=== PATIENT | female | born 1950 | race Caucasian/White ===

== ENCOUNTER 2020-04-20 12:50 | Inpatient (IN) | payer MEDICARE ==
[~2020-04-20] VITALS: Ht 157.5 cm; Wt 104.5 kg
[2020-04-20] MEDS ORDERED: CHOLECALCIFEROL (VITD3) 2,000 UNIT CAP/TAB PO ONE (13:15)
[2020-04-20] MEDS ORDERED: ZINC SULFATE 220mg CAP or TAB PO ONE (13:15)
[2020-04-20] MEDS ORDERED: ASCORBIC ACID 500 MG TAB PO ONE (13:15)
[2020-04-20] MEDS ORDERED: methylPREDNISolone SOD SUCC 125 MG/2 ML VL IV ONE (13:15)
[2020-04-20] MEDS ORDERED: ACETAMINOPHEN 325 MG TAB PO ONE (13:30)
[2020-04-20 13:58] LABS: Basophils # (auto) 0 10 ^3/uL (0-0.2); Basophils % (auto) 0.4 % (0.0-2.0); Eosinophils # (auto) 0 10 ^3/uL (0-0.8); Eosinophils % (auto) 0.2 % (0.0-7.0); Hemoglobin 13.9 g/dL (12.2-16.2); Lymphocytes # (auto) 0.7 10 ^3/uL (0.4-5.4); Lymphocytes % (auto) 12.5 % (10.0-50.0); Mean Corpuscular Hemoglobin 32.9 pg (28.0-32.0); Mean Corpuscular Hgb Conc. 33.9 g/dL (32.0-36.0); Monocytes # (auto) 0.3 10 ^3/uL (0-1.3); Monocytes % (auto) 4.7 % (0.0-12.0); Neutrophils # (auto) 4.7 10 ^3/uL (1.6-8.6); Neutrophils % (auto) 82.2 % (37.0-80.0); Nucleated Red Blood Cells % 0.1 %; Platelet Count (auto) 96 10^3/uL (140-450); Red Blood Cells 4.23 10^6/uL (4.0-5.20); Red Cell Distribution Width 12.7 % (11.8-14.3); White Blood Cell 5.7 10^3/uL (4.4-10.8)
[2020-04-20 14:22] LABS: Albumin 3.3 g/dL (3.4-5.0); Anion Gap 7 (5-15); Blood Urea Nitrogen 13 mg/dL (7-18); Calcium 8.1 mg/dL (8.5-10.1); Carbon Dioxide 25 mmol/L (21-32); Chloride 104 mmol/L (98-107); Glucose 106 mg/dL (74-106); Sodium 136 mmol/L (136-145)
[2020-04-20 14:30] LABS: Alanine Aminotransferase 128 U/L (13-56); Alkaline Phosphatase 92 U/L (45-117); Aspartate Aminotransferase 167 U/L (15-37); BUN/Creatinine Ratio 14.4; Bilirubin, Total 0.6 mg/dL (0.2-1.0); CRP High Sensitivity 4.44 mg/dL (< 0.3); GFR African American 80 mL/min; GFR Non-African American 66 mL/min; Total Protein 7.9 g/dL (6.4-8.2)
[2020-04-20] MEDS ORDERED: DOCUSATE SOD 100 MG CAP PO PRN (14:30)
[2020-04-20] MEDS ORDERED: levoFLOXacin 750MG 150 ML IV ONE (14:30)
[2020-04-20] MEDS ORDERED: ONDANSETRON HCL 4 MG/2 ML VIAL IV PRN (14:30)
[2020-04-20] MEDS ORDERED: HYDROcodone-ACET 5/325MG TAB PO PRN (14:30)
[2020-04-20] MEDS ORDERED: LORazepam 0.5 MG TAB PO PRN (14:30)
[2020-04-20] MEDS ORDERED: ALUM & MAG HYDROX-SIMETH LIQ(MAALOX) 30 ML PO PRN (14:30)
[2020-04-20] MEDS ORDERED: ACETAMINOPHEN 500 MG TAB PO PRN (14:30)
[2020-04-20] MEDS ORDERED: REMDESIVIR PER PHARMACY 0 ML IV SCH (14:30)
[2020-04-20] MEDS ORDERED: NITROGLYCERIN 0.4 MG SL TAB SL PRN (14:30)
[2020-04-20] MEDS ORDERED: MORPHINE SULF INJ 2 MG/ML SYRINGE 1ML IV PRN ×2 (14:30)
[2020-04-20 15:28] LABS: Magnesium 2.2 mg/dL (1.6-2.6)
[2020-04-20 15:33] LABS: Cholesterol 115 mg/dL (< 200); Triglycerides 136 mg/dL (< 150)
[2020-04-20 15:36] LABS: HDL Cholesterol 25 mg/dL (40-59); LDL Cholesterol 74 mg/dL (< 100)
[2020-04-20 16:00] VITALS: BP 122/68
[2020-04-20] MEDS ORDERED: CLINDAMYCIN 600MG IV 50 ML IV ONE (16:00)
[2020-04-20] MEDS ORDERED: REMDESIVIR 200 MG in NS 210ml LOADING DOSE ADULT IV ONE (20:00)
[2020-04-20] MEDS: BUDESONIDE (INHALATION) 180 MCG IH IN SCH (21:55)
[2020-04-20] MEDS: ALBUTEROL SULF HFA 90MCG INH 200DOSE IN PRN (21:55)
[2020-04-20] MEDS: CLINDAMYCIN 600MG IV 50 ML IV SCH (22:00)
[2020-04-20] MEDS: ENOXAPARIN SOD 40 MG/0.4 ML SYRINGE SC SCH (22:36)
[2020-04-21] VITALS: BP 97/66
[2020-04-21] MEDS: ALBUTEROL SULF HFA 90MCG INH 200DOSE IN PRN ×2 (06:30→21:08)
[2020-04-21] MEDS: BUDESONIDE (INHALATION) 180 MCG IH IN SCH ×2 (06:31→18:48)
[2020-04-21 06:35] LABS: Basophils # (auto) 0 10 ^3/uL (0-0.2); Basophils % (auto) 0.3 % (0.0-2.0); Eosinophils # (auto) 0 10 ^3/uL (0-0.8); Hematocrit 39.4 % (36.0-46.0); Hemoglobin 13.7 g/dL (12.2-16.2); Lymphocytes # (auto) 0.7 10 ^3/uL (0.4-5.4); Lymphocytes % (auto) 13.6 % (10.0-50.0); Mean Corpuscular Hemoglobin 33.4 pg (28.0-32.0); Mean Corpuscular Hgb Conc. 34.7 g/dL (32.0-36.0); Mean Corpuscular Volume 96.2 fL (80.0-100.0); Monocytes # (auto) 0.2 10 ^3/uL (0-1.3); Monocytes % (auto) 3.8 % (0.0-12.0); Neutrophils # (auto) 4.2 10 ^3/uL (1.6-8.6); Neutrophils % (auto) 82.3 % (37.0-80.0); Nucleated Red Blood Cells % 0.2 %; Platelet Count (auto) 111 10^3/uL (140-450); Red Cell Distribution Width 12.7 % (11.8-14.3); White Blood Cell 5.1 10^3/uL (4.4-10.8)
[2020-04-21] MEDS: CLINDAMYCIN 600MG IV 50 ML IV SCH ×3 (06:44→21:40)
[2020-04-21 06:50] LABS: Potassium 4.1 mmol/L (3.5-5.1)
[2020-04-21 06:56] LABS: INR 1.03 (0.9-1.15); Partial Thromboplastin Time 36.4 sec (23.0-31.2)
[2020-04-21 06:58] LABS: Albumin 2.9 g/dL (3.4-5.0); BUN/Creatinine Ratio 15.6; Bilirubin, Total 0.5 mg/dL (0.2-1.0); Calcium 7.9 mg/dL (8.5-10.1); Magnesium 2.5 mg/dL (1.6-2.6); Phosphorus 3.2 mg/dL (2.5-4.90); Total Protein 7.2 g/dL (6.4-8.2)
[2020-04-21 07:56] VITALS: BP 115/45
[2020-04-21] MEDS: DexAMETHasone SOD PHOS 10MG/1ML VIAL INJ IV SCH (10:26)
[2020-04-21] MEDS: levoFLOXacin 750MG 150 ML IV SCH (10:26)
[2020-04-21] MEDS: ZINC SULFATE 220mg CAP or TAB PO SCH (10:27)
[2020-04-21] MEDS: ASPirin 81 mg TAB PO SCH (10:27)
[2020-04-21] MEDS: CITALOPRAM HYDROBR 20 MG TAB PO SCH (10:28)
[2020-04-21] MEDS: LOSARTAN POTASSIUM 50 MG TAB PO SCH (10:29)
[2020-04-21] MEDS: ASCORBIC ACID 1,000 MG TAB PO SCH (10:29)
[2020-04-21] MEDS: CHOLECALCIFEROL (VITD3) 2,000 UNIT CAP/TAB PO SCH (10:30)
[2020-04-21] MEDS: REMDESIVIR 100mg 100 MG in SODIUM CHL 0.9% 230 ML IV SCH (14:47)
[2020-04-21 15:42] VITALS: BP 113/75
[2020-04-21] MEDS: ATORVASTATIN 20 MG TAB PO SCH (21:40)
[2020-04-21] MEDS: ENOXAPARIN SOD 40 MG/0.4 ML SYRINGE SC SCH (21:41)
[2020-04-22] VITALS: BP 104/56
[2020-04-22] MEDS: CLINDAMYCIN 600MG IV 50 ML IV SCH ×3 (06:53→21:58)
[2020-04-22 07:40] LABS: Calcium 8.5 mg/dL (8.5-10.1); Potassium 4.1 mmol/L (3.5-5.1)
[2020-04-22 07:42] LABS: BUN/Creatinine Ratio 21.1
[2020-04-22 07:45] LABS: Bilirubin, Total 0.5 mg/dL (0.2-1.0); Total Protein 7.2 g/dL (6.4-8.2)
[2020-04-22 08:00] VITALS: BP 112/43
[2020-04-22] MEDS: DexAMETHasone SOD PHOS 10MG/1ML VIAL INJ IV SCH (09:14)
[2020-04-22] MEDS: ZINC SULFATE 220mg CAP or TAB PO SCH (09:14)
[2020-04-22] MEDS: CITALOPRAM HYDROBR 20 MG TAB PO SCH (09:14)
[2020-04-22] MEDS: ASPirin 81 mg TAB PO SCH (09:14)
[2020-04-22] MEDS: levoFLOXacin 750MG 150 ML IV SCH (09:14)
[2020-04-22] MEDS: CHOLECALCIFEROL (VITD3) 2,000 UNIT CAP/TAB PO SCH (09:15)
[2020-04-22] MEDS: LOSARTAN POTASSIUM 50 MG TAB PO SCH (09:15)
[2020-04-22] MEDS: ASCORBIC ACID 1,000 MG TAB PO SCH (09:15)
[2020-04-22] MEDS: REMDESIVIR 100mg 100 MG in SODIUM CHL 0.9% 230 ML IV SCH (14:46)
[2020-04-22 15:55] VITALS: BP 109/51
[2020-04-22] MEDS: BUDESONIDE (INHALATION) 180 MCG IH IN SCH ×2 (20:50→21:59)
[2020-04-22] MEDS: ENOXAPARIN SOD 40 MG/0.4 ML SYRINGE SC SCH (21:58)
[2020-04-22] MEDS: ATORVASTATIN 20 MG TAB PO SCH (21:58)
[2020-04-23] VITALS: BP 119/49
[2020-04-23 06:02] LABS: Albumin 2.8 g/dL (3.4-5.0); Calcium 8.1 mg/dL (8.5-10.1); Potassium 4.5 mmol/L (3.5-5.1)
[2020-04-23 06:07] LABS: BUN/Creatinine Ratio 27.5; Bilirubin, Total 0.6 mg/dL (0.2-1.0)
[2020-04-23] MEDS: BUDESONIDE (INHALATION) 180 MCG IH IN SCH ×2 (06:15→19:36)
[2020-04-23] MEDS: ALBUTEROL SULF HFA 90MCG INH 200DOSE IN PRN ×3 (06:15→19:36)
[2020-04-23] MEDS: CLINDAMYCIN 600MG IV 50 ML IV SCH ×3 (06:23→22:18)
[2020-04-23 08:00] VITALS: BP 120/46
[2020-04-23] MEDS: DexAMETHasone SOD PHOS 10MG/1ML VIAL INJ IV SCH (09:35)
[2020-04-23] MEDS: CITALOPRAM HYDROBR 20 MG TAB PO SCH (09:36)
[2020-04-23] MEDS: ASPirin 81 mg TAB PO SCH (09:36)
[2020-04-23] MEDS: ZINC SULFATE 220mg CAP or TAB PO SCH (09:36)
[2020-04-23] MEDS: levoFLOXacin 750MG 150 ML IV SCH (09:36)
[2020-04-23] MEDS: ASCORBIC ACID 1,000 MG TAB PO SCH (09:37)
[2020-04-23] MEDS: CHOLECALCIFEROL (VITD3) 2,000 UNIT CAP/TAB PO SCH (09:37)
[2020-04-23] MEDS: LOSARTAN POTASSIUM 50 MG TAB PO SCH (09:37)
[2020-04-23] MEDS: REMDESIVIR 100mg 100 MG in SODIUM CHL 0.9% 230 ML IV SCH (16:00)
[2020-04-23 16:03] VITALS: BP 135/74
[2020-04-23] MEDS: ATORVASTATIN 20 MG TAB PO SCH (22:18)
[2020-04-23] MEDS: ENOXAPARIN SOD 40 MG/0.4 ML SYRINGE SC SCH (22:18)
[2020-04-24] VITALS: BP 143/86
[2020-04-24] MEDS: CLINDAMYCIN 600MG IV 50 ML IV SCH (05:47)
[2020-04-24 06:12] LABS: Basophils # (auto) 0 10 ^3/uL (0-0.2); Eosinophils # (auto) 0 10 ^3/uL (0-0.8); Hematocrit 40.4 % (36.0-46.0); Hemoglobin 13.9 g/dL (12.2-16.2); Lymphocytes % (auto) 13.9 % (10.0-50.0); Mean Corpuscular Hemoglobin 32.7 pg (28.0-32.0); Mean Corpuscular Hgb Conc. 34.5 g/dL (32.0-36.0); Mean Corpuscular Volume 94.6 fL (80.0-100.0); Monocytes # (auto) 0.7 10 ^3/uL (0-1.3); Monocytes % (auto) 9.7 % (0.0-12.0); Neutrophils # (auto) 5.4 10 ^3/uL (1.6-8.6); Neutrophils % (auto) 76.4 % (37.0-80.0); Nucleated Red Blood Cells % 0.2 %; Platelet Count (auto) 134 10^3/uL (140-450); Red Blood Cells 4.27 10^6/uL (4.0-5.20); Red Cell Distribution Width 12.9 % (11.8-14.3)
[2020-04-24] MEDS: BUDESONIDE (INHALATION) 180 MCG IH IN SCH ×2 (06:20→19:38)
[2020-04-24] MEDS: ALBUTEROL SULF HFA 90MCG INH 200DOSE IN PRN ×3 (06:20→19:38)
[2020-04-24 06:37] LABS: Potassium 4.4 mmol/L (3.5-5.1)
[2020-04-24 06:47] LABS: BUN/Creatinine Ratio 23.4; Bilirubin, Total 0.6 mg/dL (0.2-1.0); Calcium 8.4 mg/dL (8.5-10.1); Total Protein 6.9 g/dL (6.4-8.2)
[2020-04-24 08:00] VITALS: BP 119/72
[2020-04-24] MEDS: CITALOPRAM HYDROBR 20 MG TAB PO SCH (09:48)
[2020-04-24] MEDS: DexAMETHasone SOD PHOS 10MG/1ML VIAL INJ IV SCH (09:48)
[2020-04-24] MEDS: levoFLOXacin 750MG 150 ML IV SCH (09:48)
[2020-04-24] MEDS: ZINC SULFATE 220mg CAP or TAB PO SCH (09:48)
[2020-04-24] MEDS: ASPirin 81 mg TAB PO SCH (09:48)
[2020-04-24] MEDS: ASCORBIC ACID 1,000 MG TAB PO SCH (09:49)
[2020-04-24] MEDS: CHOLECALCIFEROL (VITD3) 2,000 UNIT CAP/TAB PO SCH (09:49)
[2020-04-24] MEDS: LOSARTAN POTASSIUM 50 MG TAB PO SCH (10:00)
[2020-04-24] MEDS: levoFLOXacin 500 MG TAB PO SCH (11:17)
[2020-04-24 12:30] VITALS: BP 139/70
[2020-04-24] MEDS: CLINDAMYCIN HCL 150 MG CAP PO SCH ×2 (13:43→21:49)
[2020-04-24] MEDS: REMDESIVIR 100mg 100 MG in SODIUM CHL 0.9% 230 ML IV SCH (15:40)
[2020-04-24 16:00] VITALS: BP 144/78
[2020-04-24] MEDS: ATORVASTATIN 20 MG TAB PO SCH (21:49)
[2020-04-24] MEDS: ENOXAPARIN SOD 40 MG/0.4 ML SYRINGE SC SCH (21:50)
[2020-04-24 22:00] VITALS: BP 143/73
[2020-04-25] VITALS: BP 143/73
[2020-04-25 05:00] VITALS: BP 142/66
[2020-04-25] MEDS: CLINDAMYCIN HCL 150 MG CAP PO SCH ×3 (05:49→20:08)
[2020-04-25 06:42] LABS: Calcium 8.5 mg/dL (8.5-10.1); Potassium 4.4 mmol/L (3.5-5.1)
[2020-04-25 06:49] LABS: BUN/Creatinine Ratio 24.3; Bilirubin, Total 0.7 mg/dL (0.2-1.0); Total Protein 7.1 g/dL (6.4-8.2)
[2020-04-25] MEDS: BUDESONIDE (INHALATION) 180 MCG IH IN SCH ×2 (07:15→19:03)
[2020-04-25] MEDS: ALBUTEROL SULF HFA 90MCG INH 200DOSE IN PRN ×2 (07:15→19:03)
[2020-04-25 08:00] VITALS: BP_SYST 125; BP_SYST 132; BP_DIAS 68
[2020-04-25] MEDS: DexAMETHasone SOD PHOS 10MG/1ML VIAL INJ IV SCH (08:51)
[2020-04-25] MEDS: levoFLOXacin 500 MG TAB PO SCH (08:52)
[2020-04-25] MEDS: CITALOPRAM HYDROBR 20 MG TAB PO SCH (08:52)
[2020-04-25] MEDS: ASCORBIC ACID 1,000 MG TAB PO SCH (08:53)
[2020-04-25] MEDS: ZINC SULFATE 220mg CAP or TAB PO SCH (08:54)
[2020-04-25] MEDS: ASPirin 81 mg TAB PO SCH (08:55)
[2020-04-25] MEDS: CHOLECALCIFEROL (VITD3) 2,000 UNIT CAP/TAB PO SCH (08:55)
[2020-04-25] MEDS: LOSARTAN POTASSIUM 50 MG TAB PO SCH (08:58)
[2020-04-25 16:47] VITALS: BP 149/74
[2020-04-25 19:52] VITALS: BP 158/63
[2020-04-25] MEDS: ATORVASTATIN 20 MG TAB PO SCH (20:08)
== END 2020-04-25 20:38 | disposition home or self-care (01) | DRG 177 ==
LOC: ER 12:50 → TELE-WESTW 12:51
PROVIDERS: ADMIT Hospitalist; ATTEND Family Medicine
PROC: XW033E5 Introduction of Remdesivir Anti-infective into Peripheral Vein, Percutaneous Approach, New Technology Group 5 (ICD-10-PCS; principal; 2020-04-20)
DX: U07.1 COVID-19 (principal); J12.82 Pneumonia due to coronavirus disease 2019; J96.01 Acute respiratory failure with hypoxia; E44.1 Mild protein-calorie malnutrition; D68.59 Other primary thrombophilia; Z68.41 Body mass index [BMI] 40.0-44.9, adult; E66.01 Morbid (severe) obesity due to excess calories; F41.9 Anxiety disorder, unspecified; E78.5 Hyperlipidemia, unspecified; F32.9 Major depressive disorder, single episode, unspecified; E78.00 Pure hypercholesterolemia, unspecified; I11.9 Hypertensive heart disease without heart failure; K76.0 Fatty (change of) liver, not elsewhere classified; Z80.0 Family history of malignant neoplasm of digestive organs; Z82.49 Family history of ischemic heart disease and other diseases of the circulatory system; Z90.49 Acquired absence of other specified parts of digestive tract; Z98.49 Cataract extraction status, unspecified eye
CPT/HCPCS: 36415; 36600; 71045; 80053; 80061; 82306; 82728; 82805; 83036; 83605; 83615; 83735; 83880; 84100; 84443; 84484; 85025; 85379; 85610; 85730; 86141; 87040; 87426; 93005; 93306; 94640; 96374; 99291; G0378; J1100; J1956; J3490